=== PATIENT | male | born 2000 | race African-American/Black ===

== ENCOUNTER 2024-04-10 12:16 | Emergency (ER) | payer BC, SELFPAY ==
[2024-04-10 12:19] VITALS: BP 127/63; PULSE 95; RESP 12; TEMP 36.6; O2SAT 97
--- NOTE | 2024-04-10 12:28 | ED.ASTHMA ---
HPI - Asthma General Chief Complaint: Asthma Stated Complaint: asthma attack Time Seen by Provider: 04/10/24 12:23 Source: patient Mode of arrival: ambulatory Limitations: no limitations History of Present Illness HPI Narrative: 24yo concerned he is having an asthma attack. Patient recently traveled to [place] for [employer] and started feeling unwell afterwards. Didn't know if it was from the dust, people at the festival, or from the people while traveling. Had a subjective fever yesterday. Has had nasal congestion and fatigue. Baseline regimen is albuterol inhaler PRN. Dust is often a trigger for him. He has been coughin. Never required intubation. did require bipap when he was 12 yo for an asthma exacerbation. Patient doesn't have a PCP. Has felt for some time he doesn't get as much air in on the right as he does on the left. Also feels like he doesn't have symmetric air flow through nostrils, not just now but at baseline. Related Data Allergies Allergy/AdvReac Type Severity Reaction Status Date / Time No Known Allergies Allergy Verified 04/10/24 12:25 [facility] Past Medical History Medical History Asthma Social History Social History Living arrangements: alone Exam Narrative: GENERAL: Well-appearing, well-nourished, and in no acute distress. HEAD: Normocephalic, atraumatic. EYES: Non injected, non icteric ENT: Nares clear, no rhinorrhea or epistaxis. No marked nasal polyps. NECK: Supple. CHEST: Speaking in full sentences. No respiratory distress. Tightness but with air flow throughout. Diffuse wheezes but non labored. HEART: Regular rate and rhythm. . ABDOMEN: Soft, nondistended. EXTREMITIES: Normal range of motion. No lower extremity edema. SKIN: Warm, dry, no rash. NEURO: No focal deficits. Alert and oriented x3. PSYCH: Normal mood and affect. Course Vital Signs Vital signs: Vital Signs Temperature 98 F 04/10/24 12:19 Pulse Rate 95 04/10/24 12:19 Respiratory Rate 12 04/10/24 12:19 Blood Pressure 127/63 04/10/24 12:19 Pulse Oximetry 97 08/20/24 12:19 Temperature 98 F 04/10/24 12:19 Pulse Rate 80 04/10/24 13:32 Respiratory Rate 20 04/10/24 13:32 Blood Pressure 127/63 04/10/24 12:19 Pulse Oximetry 97 04/10/24 12:19 MDM - Asthma MDM Narrative Medical decision making narrative: Patient presents with concern for asthma exacerbation. In the emergency department they are afebrile with vital signs within normal limits. He is complaining of nasal congestion , subjective fever yesterday, and fatigue and has the potential for sick contacts given recent travel/attendance at a music festival. Considered PE given recent travel but flight is brief and patient otherwise has congestino and wheezes on exam. Given treatments and he continues to have some wheezes but otherwise reports feeling better. Low suspicion for pneumonia. He does note that he is concerned he doesn't have symmetric air movement in his lungs at baseline; offered CXR but he states he recently had one for his job. Discharged in stable condition with prescriptions for refill albuterol inhaler and course of steroids. Also fluticasone for nasal congestion. DOesn't have a PCP so given name/referral. Discharged home in stable condition with ED return precautions. Differential Diagnosis Differential diagnosis: Likely Acute exacerbation, Status asthmaticus and other (acute viral syndrome) Lab Data Attestation: I reviewed the patient's lab results. Labs: Lab Results 04/10/24 Range/Units 12:48 Influenza A (RT-PCR) Negative (Negative) Influenza B (RT-PCR) Negative (Negative) RSV (RT-PCR) Negative (Negative) SARS-CoV-2 RNA (RT-PCR) Negative (Negative) Discharge Plan Discharge Clinical Impression: Asthma with acute exacerbation, Nasal congestion Pa
[2024-04-10] MEDS: predniSONE 20 MG TABLET 40 MG PO (12:52)
[2024-04-10 13:15] VITALS: RESP 20
[2024-04-10] MEDS: ALBUTEROL SULFATE NEB 2.5 MG/3 ML INH INHALATION (13:15)
[2024-04-10] MEDS: IPRATROPIUM 0.5 MG/ALBUTEROL SULFATE 2.5 MG AMPUL.NEB 3 ML INHALATION (13:15)
[2024-04-10 13:30] LABS: Influenza A QL RT-PCR Negative (Negative); Influenza B QL RT-PCR Negative (Negative); RSV RNA, RT-PCR Negative (Negative); SARS-CoV-2 RNA PCR Negative (Negative)
[2024-04-10 13:32] VITALS: PULSE 80; RESP 20
== END 2024-04-10 14:01 | disposition home or self-care (01) ==
PROVIDERS: Emergency Provider Student in an Organized Health Care Education/Training Program
DX: J45.901 Unspecified asthma with (acute) exacerbation (principal); R09.81 Nasal congestion; Z20.822 Contact with and (suspected) exposure to COVID-19; Z79.52 Long term (current) use of systemic steroids
CPT/HCPCS: 87637; 94640; 99283; J7512

== ENCOUNTER 2024-04-16 15:12 | Outpatient (CLI) | payer BC, SELFPAY ==
[2024-04-16 18:50] LABS: Basophils Percent Auto 0.2 % (0.2-1.2); Hematocrit 44.6 % (42.0-52.0); Hemoglobin 15.2 g/dL (14.0-18.0); Immature Granulocyte Absolute 0.09 K/mm3 (0.00-0.031); Immature Granulocyte Percent A 0.7 % (0-0.5); Lymphocytes Absolute Auto 1.15 K/mm3 (0.9-3.2); Lymphocytes Percent Auto 9.3 % (18.3-44.2); Mean Corpuscular HGB Conc 34.1 g/dl (32-36); Mean Corpuscular Hemoglobin 31.9 pg (26-34); Mean Corpuscular Volume 93.7 fl (80-100); Mean Platelet Volume 9.2 fl (7.4-10.4); Monocytes Absolute Auto 0.7 K/mm3 (0.1-0.6); Monocytes Percent Auto 5.3 % (2.6-8.5); Neutrophils Absolute Auto 10.5 K/mm3 (1.3-6.7); Neutrophils Percent Auto 84.5 % (45.5-73.1); Platelet Count Result 258 k/mm3 (150-375); Red Blood Count 4.76 M/mm3 (4.6-6.20); Red Cell Distribution Width 14.3 % (11.5-14.5); White Blood Count 12.4 K/mm3 (4.5-10.0)
[2024-04-16 19:14] LABS: Erythrocyte Sedimentation Rate 14 mm/hr (0-20)
[2024-04-16 19:25] LABS: Alanine Aminotransferase 31 U/L (6-50); Albumin Level 4.4 g/dL (3.5-5.1); Alkaline Phosphatase 60 U/L (38-126); Anion Gap 9 mmol/L (4-12); Aspartate Amino Transferase 42 U/L (17-59); Bilirubin,Total 0.4 mg/dL (0.2-1.3); Blood Urea Nitrogen 23 mg/dL (9-20); Calcium 9.6 mg/dL (8.4-10.2); Carbon Dioxide 30 mmol/L (22-30); Chloride 98 mmol/L (98-107); Cholesterol 192 mg/dL (0-200); Estimated Glomerular Filt Rate > 60; Glucose 114 mg/dL (65-110); HDL Direct 77 mg/dL; Potassium 4.4 mmol/L (3.4-5.0); Sodium 137 mmol/L (137-145); Triglycerides 56 mg/dL (<150)
[2024-04-16 19:36] LABS: LDL Cholesterol Direct 87 mg/dL
== END 2024-04-16 15:13 | disposition home or self-care (01) ==
LOC: ANHGOSHLAB 15:13
PROVIDERS: PCP Family Medicine; Visit Provider Internal Medicine
DX: Z13.29 Encounter for screening for other suspected endocrine disorder (principal); Z13.0 Encounter for screening for diseases of the blood and blood-forming organs and certain disorders involving the immune mechanism; Z13.228 Encounter for screening for other metabolic disorders; J45.909 Unspecified asthma, uncomplicated; R06.00 Dyspnea, unspecified; R06.89 Other abnormalities of breathing
CPT/HCPCS: 36415; 80053; 80061; 85025; 85652

== ENCOUNTER 2024-04-16 15:21 | Outpatient (CLI) | payer BC, SELFPAY ==
--- NOTE | ~2024-04-16 | XR_ITS ---
EXAMINATION: XR chest 2V 04/16/2024 15:33 INDICATION: Shortness of breath. History of asthma. PROCEDURE: 2 view chest COMPARISON: No prior studies for comparison. FINDINGS: The lungs are clear. The cardiomediastinal silhouette is within normal limits. There are no pleural effusions. There is no pneumothorax suspected. IMPRESSION: 1: NO ACUTE CARDIOPULMONARY DISEASE. Reviewed, dictated and finalized at location B.
== END 2024-04-16 15:22 ==
PROVIDERS: PCP Internal Medicine; Visit Provider Internal Medicine
DX: J45.909 Unspecified asthma, uncomplicated (principal)
CPT/HCPCS: 71046